=== PATIENT | female | born 1985 | race Hispanic/Latino ===

== ENCOUNTER → 2023-04-12 | Emergency (ER) | payer BC ==
[~2023-04-12] VITALS: Ht 160 cm; Wt 68.0 kg
[~2023-04-12] MED LIST: CYCL-309 PO; NAPR-1180 PO
[2023-04-12 19:50] VITALS: BP 151/95; PULSE 86; RESP 18
[2023-04-12 20:18] LABS: HCG,QUALITATIVE URINE NEGATIVE (NEGATIVE)
[2023-04-12 20:24] LABS: APPEARANCE,URINE CLOUDY (CLEAR); BILIRUBIN,URINE NEGATIVE (NEGATIVE); COLOR,URINE YELLOW (YELLOW); GLUCOSE, URINE (UA) NEGATIVE (NEGATIVE); KETONES,URINE NEGATIVE (NEGATIVE); LEUKOCYTE ESTERASE ,URINE 75 Leu/uL (NEGATIVE); NITRATE,URINE NEGATIVE (NEGATIVE); OCCULT BLOOD,URINE LARGE (NEGATIVE); PROTEIN,URINE 20 mg/dL (NEGATIVE)
[2023-04-12 20:38] LABS: ADD UA MICROSCOPIC YES
[2023-04-12 20:47] LABS: BACTERIA,URINE RARE /HPF (None Seen); MUCUS,URINE RARE LPF (None Seen); SQUAMOUS EPITHELIAL CELL,UR MOD /HPF (0-2)
== END ==
LOC: EDH 19:49
DX: S00.93XA Contusion of unspecified part of head, initial encounter (principal); W18.39XA Other fall on same level, initial encounter; Y93.89 Activity, other specified; Y92.89 Other specified places as the place of occurrence of the external cause; Y99.8 Other external cause status
CPT/HCPCS: 70450; 81001; 81025; 87088